=== PATIENT | female | born 1950 | race Caucasian/White ===

== ENCOUNTER 2016-09-16 06:09 | Day surgery (SDC) | payer MEDICARE, MEDICAID ==
[2016-09-16] MEDS ORDERED: Dextrose 5%-Lactated Ringers 1,000 ML IV SCH (06:30)
[2016-09-16] MEDS ORDERED: fentaNYL 100 MCG/2 ML SDV ONE (07:05)
[2016-09-16] MEDS ORDERED: Midazolam 1 MG/ML 2 ML SDV ONE (07:05)
[2016-09-16] MEDS ORDERED: Propofol 200 MG/20 ML SDV ONE (07:05)
[2016-09-16 08:34] VITALS: BP 95/83
--- NOTE | 2016-09-18 11:16 | OR ---
DATE OF PROCEDURE: 09/16/2016 PREOPERATIVE DIAGNOSIS: History of recent dark stools, suggestive of possible GI bleeding. POSTOPERATIVE DIAGNOSES: 1. Moderate-sized hiatal hernia without gross esophageal inflammation. 2. 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 3. Mild antral gastritis (no obvious bleeding site seen on today's exam). OPERATIVE PROCEDURE: Esophagogastroduodenoscopy with biopsies of antrum for CLOtest. ANESTHESIA: IV sedation. INDICATION FOR PROCEDURE: This is a 66-year-old female with Sjogren's syndrome, presenting with history of peptic ulcer disease in the past and a recent history of some dark stools suggestive of possible GI bleeding. The patient is presently on omeprazole 40 mg b.i.d. and Carafate 1 g q.i.d., i.e. maximum medical treatment. Plan is to proceed with upper GI endoscopy with biopsies as indicated. Potential risks including bleeding and perforation were discussed, and the patient wishes to proceed. DETAILS OF PROCEDURE: The patient was taken to the operating room and placed in a left lateral decubitus position. IV sedation was administered, after which the upper GI endoscope was passed orally through the length of the esophagus, into the stomach with retroflexion view of the fundus, and thereafter through the pyloric channel and into the proximal duodenum. Findings included normal hypopharynx, larynx, and upper esophageal sphincter. As one passed into the esophagus, esophageal body was unremarkable. At the EG junction, there was a moderate-sized hiatal hernia with roughly 3 to 4 cm of stomach up in the chest. This was, however, not associated with any gross inflammation of the distal esophagus. Within the stomach, there was a moderate-sized gastric bezoar consisting of old vegetable- type material. With this, there was some reddening in that part of the gastric body. The patient also had some mild antral gastritis. The pyloric channel and duodenum to the junction of the third and fourth portions were unremarkable. At this point, biopsies were obtained from the antrum and sent for CLOtest for H. pylori. Minimal bleeding from the biopsy site and the scope was withdrawn and the procedure then concluded. Plan will be to continue the present medical management and try to adopt an anti-bezoar diet. We will review that with the patient, as well as her PCP today, and she will be set up for followup with Dr. Luna in [facility] in 2 to 3 weeks. If the CLOtest is positive, she will be contacted and started on one of the anti H. pylori regimens. Tk Mo MD /[id number]
== END 2016-09-16 09:25 | disposition home or self-care (01) ==
LOC: JP.SDS 06:09
PROVIDERS: ATTEND Surgery
DX: K29.50 Unspecified chronic gastritis without bleeding (principal); K44.9 Diaphragmatic hernia without obstruction or gangrene; E03.9 Hypothyroidism, unspecified; K21.9 Gastro-esophageal reflux disease without esophagitis; T18.2XXA Foreign body in stomach, initial encounter; X58.XXXA Exposure to other specified factors, initial encounter; Z88.1 Allergy status to other antibiotic agents; Z88.2 Allergy status to sulfonamides; Z88.8 Allergy status to other drugs, medicaments and biological substances; Z98.890 Other specified postprocedural states; Z98.51 Tubal ligation status
CPT/HCPCS: 43239; 87081; J2250; J2704; J3010; J7042

== ENCOUNTER 2016-11-11 06:12 | Day surgery (SDC) | payer MEDICARE, MEDICAID ==
[2016-11-11] MEDS ORDERED: Dextrose 5%-Lactated Ringers 1,000 ML IV SCH (06:30)
[2016-11-11] MEDS ORDERED: fentaNYL 100 MCG/2 ML SDV ONE (06:55)
[2016-11-11] MEDS ORDERED: Propofol 200 MG/20 ML SDV ONE (06:55)
[2016-11-11] MEDS ORDERED: Glycopyrrolate 0.2 MG/ML 2 ML SDV IVPUSH ONE (07:00)
[2016-11-11] MEDS ORDERED: Ampicillin/Sulbactam Na 3 GM in Sodium Chloride 0.9% 100 ML IV ONE (07:30)
[2016-11-11 09:04] VITALS: BP 119/88
--- NOTE | 2016-11-12 12:54 | OR ---
DATE OF PROCEDURE: 11/11/2016 PREOPERATIVE DIAGNOSIS: History of gastric bezoar. POSTOPERATIVE DIAGNOSIS: No residual gastric bezoar. OPERATIVE PROCEDURE: Upper gastrointestinal endoscopy with biopsies of antrum for CLOtest. ANESTHESIA: IV sedation. INDICATIONS FOR PROCEDURE: This is a 66-year-old female previously noted to have a large gastric bezoar. She was placed on anti-bezoar diet along with some carbonated beverages and presently is on Protonix 40 mg a day. The plan is to proceed with upper GI endoscopy to see bezoar has cleared. Potential risks of procedure including bleeding and perforation were discussed, and the patient wishes to proceed. DETAILS OF PROCEDURE: The patient was taken to the operating room and placed in a left lateral decubitus position. IV sedation was administered, after which the upper GI endoscope was passed orally through the length of the esophagus into the stomach with retroflexion view of the fundus, and thereafter through the pyloric channel and into the junction of the third and fourth portions of the duodenum. Findings included normal hypopharynx, larynx, upper esophageal sphincter, and esophageal body. EG junction showed no significant hiatal hernia or inflammation. Upon entering the stomach, the previous noted bezoar was entirely clear and in fact there was not even any bile present in the stomach. The stomach had minimal if any inflammation on the mucosal surface. Pyloric channel was visualized, portion of the duodenum was likewise unremarkable. To check the patient's H. pylori status, once again the biopsies were obtained from the antrum and sent for CLOtest for H. pylori. Minimal bleeding from the biopsy sites were seen and the procedure was then concluded. Recommendations at this point will be to continue with present medical management including Protonix and then also continue with the current dietary management with the anti-bezoar diet. She was instructed as long as she is not having any change GI symptoms she would not need a followup with Dr. Luna, specifically for this issue, but will continue to follow for general medical care or check in if her GI symptoms worsen, but otherwise continue with the present medical regimen. Tk Mo MD /[id number]
== END 2016-11-11 08:55 | disposition home or self-care (01) ==
LOC: JP.SDS 06:12
PROVIDERS: ATTEND Surgery
DX: T18.2XXA Foreign body in stomach, initial encounter (principal); K21.9 Gastro-esophageal reflux disease without esophagitis; Z88.1 Allergy status to other antibiotic agents; Z88.2 Allergy status to sulfonamides; Z88.8 Allergy status to other drugs, medicaments and biological substances
CPT/HCPCS: 43239; 87081; J0295; J2704; J3010; J7030; J7042

== ENCOUNTER 2020-01-16 14:17 | Emergency (ER) | payer MEDICARE ==
--- NOTE | 2020-01-16 15:17 | EDM.PDOC ---
ED HPI GENERAL MEDICAL PROBLEM - General Chief Complaint: General Stated Complaint: COVID POSITIVE WEAKNESS VIA [facility] Time Seen by Provider: 01/16/20 15:00 Source of Information: Reports: Patient, EMS History Limitations: Reports: No Limitations - History of Present Illness INITIAL COMMENTS - FREE TEXT/NARRATIVE: 69-year-old female who has chronic foot pain, lives independently in a small apartment has fallen twice in the last 2 days and needed assistance with EMS. She was diagnosed with Covid 10 days ago and continues to be weak. She called her primary provider and they recommended she should be assessed for possible rehab or be checked for urinary tract infection. Onset: Gradual (Seems to be weakening over the past several weeks, needed two EMS assists this week) Associated Symptoms: Reports: Malaise, Weakness. Denies: Cough, Fever/Chills, Nausea/Vomiting, Shortness of Breath Left Foot Pain Score (Numeric/FACES): 2 - Related Data Allergies Allergy/AdvReac Type Severity Reaction Status Date / Time acetaminophen [From Vicodin] Allergy Itching Verified 01/16/20 14:29 hydrocodone bitartrate Allergy Itching Verified 01/16/20 14:29 [From Vicodin] levofloxacin [From Levaquin] Allergy Cannot Verified 01/16/20 14:29 Remember povidone-iodine Allergy Blisters Verified 01/16/20 14:29 Sulfa (Sulfonamide Allergy Hives Verified 01/16/20 14:29 Antibiotics) lamotrigine [From Lamictal] AdvReac Disorientat Verified 01/16/20 14:29 ion Home Meds: Home Meds Acetaminophen [Arthritis Pain Relief] 650 mg PO TID 11/09/14 [History] Cevimeline [Evoxac] 30 mg PO BID 11/09/14 [History] Cholecalciferol (Vitamin D3) [Vitamin D3] 1,000 units PO DAILY 11/09/14 [History] DULoxetine [Cymbalta] 60 mg PO DAILY 11/09/14 [History] Divalproex Sodium [Divalproex Sodium ER] 1,000 mg PO BEDTIME 11/09/14 [History] Gabapentin [Neurontin] 300 mg PO TID 11/09/14 [History] Hydroxychloroquine [Plaquenil] 200 mg PO BID 11/09/14 [History] Omeprazole 40 mg PO BIDAC 11/09/14 [History] Past Medical History HEENT History: Reports: Cataract, Impaired Vision Cardiovascular History: Reports: Hypertension Respiratory History: Reports: None Gastrointestinal History: Reports: Chronic Constipation, Chronic Diarrhea, Gastritis, GERD, Hiatal Hernia, PUD, Other (See Below) Other Gastrointestinal History: bezoar Genitourinary History: Reports: None CAT AND DOG BATHER History: Reports: , Spontaneous Musculoskeletal History: Reports: Arthritis, Back Pain, Chronic, Neck Pain, Chronic Other Musculoskeletal History: sjogren syndrom Neurological History: Reports: None Psychiatric History: Reports: Bipolar, Panic Attack Endocrine/Metabolic History: Reports: Obesity/BMI 30+, Vitamin D Deficiency Other Endocrine/Metabolic History: sjogren syndrom Hematologic History: Reports: Anemia, Blood Transfusion(s) Immunologic History: Reports: Other (See Below) Other Immunologic History: sjogren syndrome Oncologic (Cancer) History: Reports: None Dermatologic History: Reports: Cellulitis - Infectious Disease History Infectious Disease History: Reports: Chicken Pox, Herpes, Measles, Mumps, Rheumatic Fever - Past Surgical History Head Surgeries/Procedures: Reports: None HEENT Surgical History: Reports: Cataract Surgery Other HEENT Surgeries/Procedures: tear duct surgery Cardiovascular Surgical History: Reports: None Respiratory Surgical History: Reports: None GI Surgical History: Reports: Colonoscopy, EGD, Darrius Fundoplication Female Surgical History: Reports: Tubal Ligation Endocrine Surgical History: Reports: None Neurological Surgical History: Reports: Lumbar Spine, Other (See Below) Other Neurological Surgeries/Procedures: back latrice and screws Musculoskeletal Surgical History: Reports: Carpal Tunnel, Hip Replacement Other Musculoskeletal Surgeries/Procedures:: 2 rods 8 screws in back Oncologic Surgical History: Reports: None Dermatological Surgical History: Reports: None Social & Family History - Family History Family Medical History: No Pertinent Family History - Tobacco Use Tobacco Use Status *Q: Never Tobacco User - Caffeine Use Caffeine Use: Reports: Coffee - Recreational Drug Use Recreational Drug Use: No ED ROS GENERAL - Review of Systems Review Of Systems: See Below Constitutional: Reports: Malaise, Decreased Appetite. Denies: Fever, Chills HEENT: Denies: Throat Pain Respiratory: Reports: Shortness of Breath (With activity) Cardiovascular: Denies: Chest Pain GI/Abdominal: Reports: Decreased Appetite, Other (Admits she is not taking in fluids well). Denies: Nausea, Vomiting : Reports: No Symptoms Musculoskeletal: Reports: Other (Chronic foot pain) Neurological: Reports: Weakness ED EXAM, GENERAL - Physical Exam Exam: See Below Exam Limited By: No Limitations General Appearance: Alert, No Apparent Distress Eye Exam: Bilateral Eye: Normal Inspection Head: Atraumatic Respiratory/Chest: No Respiratory Distress, Lungs Clear Cardiovascular: Regular Rate, Rhythm, Tachycardia GI/Abdominal: Soft, Non-Tender Extremities: Other (Diffuse swelling around the ankles, somewhat worse on the right) Neurological: Alert, Oriented Psychiatric: Depressed Mood, Flat Affect Skin Exam: Warm, Dry Course - Vital Signs Last Recorded V/S: Last Vital Signs Temp 96.8 F L 01/16/20 14:22 Pulse 90 01/16/20 18:00 Resp 16 01/16/20 18:00 BP 127/89 01/16/20 18:00 Pulse Ox 95 01/16/20 18:00 - Orders/Labs/Meds Labs: Laboratory Tests 01/16/20 Range/Units 15:33 Urine Color Yellow (YELLOW) Urine Appearance Clear (CLEAR) Urine pH 6.0 (5.0-8.0) Ur Specific [place] >= 1.030 (1.008-1.030) Urine Protein Trace H (NEGATIVE) mg/dL Urine Glucose (UA) Negative (NEGATIVE) mg/dL Urine Ketones Trace H (NEGATIVE) mg/dL Urine Occult Blood Trace-intact H (NEGATIVE) Urine Nitrite Negative (NEGATIVE) Urine Bilirubin Small H (NEGATIVE) Urine Urobilinogen 2.0 H (0.2-1.0) EU/dL Ur Leukocyte Esterase Negative (NEGATIVE) Urine RBC Not seen (0-5) Urine WBC Not seen (0-5) Ur Epithelial Cells Not seen Urine Bacteria Not seen Meds: Medications Discontinued Medications Generic Name Dose Route Start Last Admin Trade Name Freq PRN Reason Stop Dose Admin Sodium Chloride 1,000 mls @ 1,000 mls/hr 01/16/20 16:00 01/16/20 17:07 Normal Saline IV 1,000 mls/hr ASDIRECTED [facility] Administration - Re-Assessments/Exams Free Text/Narrative Re-Assessment/Exam: 01/16/20 18:03 UA was obtained that showed no infection. 01/16/20 18:03 There was trace ketones present in the urine. Patient will be given 1 L of fluid, and a discharge planning consultation was obtained. Unfortunately she does not meet criteria for inpatient admission and there is no rehab or jail bed available at this time. Patient does admit that she has home health services, but she refused help today and does not use her walker, so we encouraged her to use both of those forms of assistance. We also have a social service consultation in for a more comprehensive home health assessment visit later this week. Departure - Departure Time of Disposition: 18:51 Disposition: Home, Self-Care 01 Clinical Impression: Mild dehydration, Generalized weakness, COVID-19 - Discharge Information Instructions: Weakness Referrals: PCP,None [Primary Care Provider] - Forms: ED Department Discharge Care Plan Goals: Use your walker for assistance around your home to avoid falling, and welcome the help with home care and home nursing on a regular basis. Consider rechecking in 3 to 4 days if not improving. Sepsis Event Note (ED) - Evaluation Sepsis Screening Result: No Definite Risk
[2020-01-16] MEDS ORDERED: Sodium Chloride 0.9% 1,000 ML IV SCH (16:00)
[2020-01-16 18:51] VITALS: BP 127/89; PULSE 90
== END 2020-01-16 18:51 | disposition home or self-care (01) ==
LOC: JP.ED 14:17
DX: U07.1 COVID-19 (principal); E86.0 Dehydration; M25.472 Effusion, left ankle; M25.471 Effusion, right ankle; R00.0 Tachycardia, unspecified; M79.672 Pain in left foot; K21.9 Gastro-esophageal reflux disease without esophagitis; I10 Essential (primary) hypertension; F31.9 Bipolar disorder, unspecified; E66.9 Obesity, unspecified; Z68.33 Body mass index [BMI] 33.0-33.9, adult; Z88.6 Allergy status to analgesic agent; Z88.5 Allergy status to narcotic agent; Z88.8 Allergy status to other drugs, medicaments and biological substances; Z88.2 Allergy status to sulfonamides; Z79.899 Other long term (current) drug therapy
CPT/HCPCS: 81001; 99285; J7030

== ENCOUNTER 2021-03-21 15:47 | Emergency (ER) | payer MEDICARE ==
[2021-03-21] MEDS ORDERED: Bupivacaine 0.5% 10 ML SDV INJECT ONE ×2 (16:52→16:53)
[2021-03-21] MEDS ORDERED: Triamcinolone Acetonide 40 MG/ML 1 ML SDV INJECT PRN ×2 (16:52→16:53)
[2021-03-21 17:00] VITALS: BP 118/74; PULSE 98
== END 2021-03-21 18:45 | disposition home or self-care (01) ==
LOC: JP.ED 15:47
DX: M25.562 Pain in left knee (principal); M70.62 Trochanteric bursitis, left hip; I10 Essential (primary) hypertension; E66.9 Obesity, unspecified; Z68.43 Body mass index [BMI] 50.0-59.9, adult; Z88.1 Allergy status to other antibiotic agents; Z88.8 Allergy status to other drugs, medicaments and biological substances; Z88.2 Allergy status to sulfonamides; Z79.899 Other long term (current) drug therapy
CPT/HCPCS: 73562; 99284; J3301; J3490

== ENCOUNTER 2024-04-05 03:53 | Emergency (ER) | payer MEDICARE ==
[2024-04-05 04:32] LABS: BASOPHILS ABSOLUTE AUTO 0.06 K/uL (0.00-0.10); BASOPHILS PERCENT AUTO 1.2 % (0.1-1.3); EOSINOPHILS ABSOLUTE AUTO 0.27 K/uL (0.00-0.40); EOSINOPHILS PERCENT AUTO 5.2 % (0.0-5.4); HEMATOCRIT 35.5 % (34.3-46.0); HEMOGLOBIN 11.3 g/dL (11.2-15.5); IMMATURE GRAN PERCENT AUTO 0.4 % (0.0-0.7); LYMPHOCYTES ABSOLUTE AUTO 1.29 K/uL (0.8-3.3); MEAN CORPUSCULAR HEMOGLOBIN 33.7 pg (31.6-35.5); MEAN CORPUSCULAR HGB CONC 31.8 g/dL (31.6-35.5); MONOCYTES ABSOLUTE AUTO 0.76 K/uL (0.20-0.90); MONOCYTES PERCENT AUTO 14.7 % (3.3-12.6); NEUTROPHILS ABSOLUTE AUTO 2.77 K/uL (1.0-7.6); NEUTROPHILS PERCENT AUTO 53.5 % (40.0-78.1); PLATELET COUNT,PLT 181 K/uL (130-375); RED BLOOD CELL COUNT 3.35 M/uL (3.77-5.24); WHITE BLOOD CELL COUNT,WBC 5.2 K/uL (3.2-11.0)
[2024-04-05 04:33] LABS: IMMATURE GRAN ABSOLUTE AUTO 0.02 K/uL (0.00-0.23)
[2024-04-05 07:05] VITALS: BP 116/71; PULSE 81
== END 2024-04-05 07:02 | disposition home or self-care (01) ==
LOC: JP.ED 03:53
DX: G57.92 Unspecified mononeuropathy of left lower limb (principal); I10 Essential (primary) hypertension; E66.9 Obesity, unspecified; Z79.899 Other long term (current) drug therapy; Z88.1 Allergy status to other antibiotic agents; Z88.2 Allergy status to sulfonamides; Z88.8 Allergy status to other drugs, medicaments and biological substances; Z91.048 Other nonmedicinal substance allergy status
CPT/HCPCS: 36415; 85025; 85379; 99283